=== PATIENT | female | born 1945 | race Caucasian/White ===

== ENCOUNTER 2017-04-07 20:45 | Inpatient (IN) | payer OTHER, BC ==
[2017-04-07] MEDS ORDERED: NS 1,000 ML IV ONE (20:54)
[2017-04-07 20:58] LABS: BASE EXCESS -12.4 mEq/L (-2.5-2.5); BICARBONATE 23 mEq/L (22-26); MEASURED OXYGEN SATURATION 97 % (92-95); PO2 161 mmHg (65-75); TCO2 26 mEq/L (23-27)
[2017-04-07] MEDS ORDERED: IPRATROPIUM/ALBUTEROL 3 ML DEYVIAL IH ONE (21:00)
--- NOTE | 2017-04-07 21:02 | CPEKG ---
Heart Rate: 128 RR Interval: 469 P-R Interval: 144 QRSD Interval: 88 QT Interval: 304 QTC Interval: 444 P [place]: 77 QRS [place]: 75 T Wave [place]: 63 EKG Severity - BORDERLINE ECG - EKG Impression: SINUS TACHYCARDIA EKG Impression: VENTRICULAR PREMATURE COMPLEX EKG Impression: MINIMAL ST DEPRESSION, ANTEROLATERAL LEADS Electronically Signed By: Levy Burnett 07-Apr-2017 21:47:06
[2017-04-07 21:03] LABS: % IMMATURE GRANULYOCYTES 0.9 % (0.0-1.1); ABSOLUTE IMMATURE GRANULOCYTES 0.08 10^3/uL (0.00-0.10); ADD DIFF? NO; ADD MORPH? NO; ADD SCAN? NO; ATYPICAL LYMPHOCYTE FLAG 0 (0-99); FRAGMENT RBC FLAG 0 (0-99); HEMATOCRIT 49.3 % (38.0-47.0); HEMOGLOBIN 15.8 g/dL (12.6-16.3); LEFT SHIFT FLG 0 (0-99); LIPEMIA HEMOLYSIS FLAG 80 (0-99); MEAN CELL HEMOGLOBIN 33.5 pg (27.9-34.1); MEAN CELL VOLUME 104.4 fL (81.5-99.8); MEAN PLATELET VOLUME 10.2 fL (8.7-11.7); PLATELET CLUMPS FLAG 0 (0-99); PLATELET COUNT 207 10^3/uL (150-400); RED BLOOD CELL COUNT 4.72 10^6/uL (4.18-5.33)
[2017-04-07 21:10] LABS: PCO2 101 mmHg (34-38)
[2017-04-07 21:16] LABS: ANION GAP 17 mEq/L (8-16); CARBON DIOXIDE 24 mEq/l (22-31); CHLORIDE 98 mEq/L (97-110); CREATININE 0.7 mg/dL (0.6-1.0); ETHANOL SERUM 16 mg/dL (0-10); GLOMERULAR FILTRATION RATE > 60; GLUCOSE 237 mg/dL (70-100); POTASSIUM 4.4 mEq/L (3.5-5.2); SODIUM 139 mEq/L (134-144)
--- NOTE | 2017-04-07 21:18 | EDPHY ---
H & P Stated Complaint: Resp Distress Time Seen by Provider: 04/07/17 21:15 HPI/ROS: CHIEF COMPLAINT: Respiratory distress HISTORY OF PRESENT ILLNESS: The patient presents to the ED after a respiratory arrest. The patient is visiting from [place]. She was out the with her family when she developed acute dyspnea. The patient does have a history of COPD and asthma. She is also a smoker. The patient reportedly collapsed and had bystander CPR. According to paramedics the patient was noted to be in a sinus tachycardia with pulses upon their arrival. The patient reportedly had initial O2 sats in the 50% range. She was given an basic airway and bag-valve mouth. The patient is unable to provide additional history upon arrival as she is obtunded. REVIEW OF SYSTEMS: A comprehensive 10 point review of systems is otherwise negative aside from elements mentioned in the history of present illness. Source: Family, EMS - Personal History Current Tetanus/Diphtheria Vaccine: Unsure Current Tetanus Diphtheria and Acellular Pertussis (TDAP): Unsure - Medical/Surgical History Hx Asthma: Yes Hx Chronic Respiratory Disease: Yes Hx Diabetes: No Hx Cardiac Disease: No Hx Renal Disease: No Hx Cirrhosis: No Hx Alcoholism: No Hx HIV/AIDS: No Hx Splenectomy or Spleen Trauma: No Other PMH: copd, asthma - Social History Smoking Status: Heavy smoker Alcohol Use: None Drug Use: None - Physical Exam Exam: General Appearance: Confused, thin cachectic female Eyes: Pupils equal and round no pallor or injection ENT, Mouth: Dry mucous membranes Respiratory: Spontaneous breathing Cardiovascular: Regular rate and rhythm Gastrointestinal: Abdomen is soft and nontender, no masses, bowel sounds normal Neurological: Withdrawals to pain all 4 extremities Skin: Poor turgor Musculoskeletal: Neck is supple nontender Extremities: symmetrical, full range of motion Constitutional: Initial Vital Signs Temperature (C) 36.0 C 04/07/17 20:50 Heart Rate 124 H 04/07/17 20:50 Respiratory Rate 40 H 04/07/17 20:50 Blood Pressure 164/106 H 04/07/17 20:50 O2 Sat (%) 96 04/07/17 20:50 O2 Delivery Mode Bi-Pap Allergies/Adverse Reactions: azithromycin Allergy (Verified 04/07/17 20:59) Home Medications: Medication Instructions Recorded Aspirin 81mg (*) 04/07/17 Medical Decision Making - Diagnostics EKG Interpretation: EKG: Complete interpretation has been separately recorded in the [facility] archive. Summary impression: Sinus tachycardia, multiple PVCs Imaging Results: Imaging Impressions Chest X-Ray 04/07/17 20:55 Impression: No active cardiopulmonary disease seen. Head CT 04/07/17 20:55 Impression: 1. No significant intracranial abnormality seen. Findings discussed with Levy Burnett at 21:19 hour, 04/07/2017. ED Course/Re-evaluation: The patient presents the emergency department after a witnessed respiratory arrest. She does have a history of COPD. She arrives of altered mental status and poor air movement. The patient was placed on BiPAP upon arrival. Initial blood gas demonstrates a severe respiratory acidosis with CO2 of 100. The patient was taken for a stat CT scan of the head which demonstrates no evidence of an obvious intracranial mass or midline shift. The patient returned from her CT scan. A stat chest x-ray was performed which demonstrates no evidence of focal infiltrate. She does have emphysematous changes noted consistent with her COPD. The patient was re-evaluated by myself at the bedside at 9:24 p.m.. Her mentation is improving on BiPAP. Family members have arrived to provide collateral information. They report the [place] She has been here for the past day. She has COPD and continues to smoke. She has had no antecedent illness. They believe the patient only uses an inhaler. The patient will require admission to the hospital for close observation of her severe respiratory acidosis and respiratory arrest. Consultation was made with Dr. Diez from the hospitalist service at 9:30 p.m.. He will admit the patient to the intensive care unit this evening. Differential Diagnosis: Differential diagnosis considered includes cardiac arrest, respiratory arrest, pneumonia, intracranial hemorrhage, metabolic abnormality Critical Care Time: Critical care time exclusive of procedures and exclusive of the PA's time was 45 minutes, performed by myself, Levy Burnett MD. Patient presents to the ED with acute respiratory arrest. She was noted to have a critical respiratory acidosis. The patient was placed on BiPAP. She required close bedside observation and will need to be admitted to the ICU for further stabilization. - Data Points Laboratory Results: Laboratory Results 04/07/17 20:54 04/07/17 20:54 04/07/17 04/07/17 04/07/17 20:54 20:54 20:54 WBC 9.36 10^3/uL 10^3/uL (3.80-9.50) RBC 4.72 10^6/uL 10^6/uL (4.18-5.33) Hgb 15.8 g/dL g/dL (12.6-16.3) Hct 49.3 % H % (38.0-47.0) MCV 104.4 fL H fL (81.5-99.8) MCH 33.5 pg pg (27.9-34.1) MCHC 32.0 g/dL L g/dL (32.4-36.7) RDW 13.0 % % (11.5-15.2) Plt Count 207 10^3/uL 10^3/uL (150-400) MPV 10.2 fL fL (8.7-11.7) Neut % (Auto) 27.4 % L % (39.3-74.2) Lymph % (Auto) 60.4 % H % (15.0-45.0) [place] % (Auto) 8.7 % % (4.5-13.0) Eos % (Auto) 2.2 % % (0.6-7.6) Baso % (Auto) 0.4 % % (0.3-1.7) Nucleat RBC Rel Count 0.0 % % (0.0-0.2) Absolute Neuts (auto) 2.57 10^3/uL 10^3/uL (1.70-6.50) Absolute Lymphs (auto) 5.65 10^3/uL H 10^3/uL (1.00-3.00) Absolute Monos (auto) 0.81 10^3/uL H 10^3/uL (0.30-0.80) Absolute Eos (auto) 0.21 10^3/uL 10^3/uL (0.03-0.40) Absolute Basos (auto) 0.04 10^3/uL 10^3/uL (0.02-0.10) Absolute Nucleated RBC 0.00 10^3/uL 10^3/uL (0-0.01) Immature Gran % 0.9 % % (0.0-1.1) Immature Gran # 0.08 10^3/uL 10^3/uL (0.00-0.10) Puncture Site ARTERIAL LINE Patient Temperature 37.0 DEGREES DEGREES pCO2 101 mmHg H* mmHg (34-38) pO2 161 mmHg H mmHg (65-75) Total CO2 26 mEq/L mEq/L (23-27) ABG pH 6.99 L* (7.35-7.45) ABG HCO3 23 mEq/L mEq/L (22-26) ABG O2 Saturation 97 % H % (92-95) ABG Base Excess -12.4 mEq/L L mEq/L (-2.5-2.5) ABG Lactic Acid 5.7 mmol/L H mmol/L (0.5-1.6) Sodium 139 mEq/L mEq/L (134-144) Potassium 4.4 mEq/L mEq/L (3.5-5.2) Chloride 98 mEq/L mEq/L (97-110) Carbon Dioxide 24 mEq/l mEq/l (22-31) Anion Gap 17 mEq/L H mEq/L (8-16) BUN 18 mg/dL mg/dL (7-23) Creatinine 0.7 mg/dL mg/dL (0.6-1.0) Estimated GFR > 60 Glucose 237 mg/dL H mg/dL (70-100) Calcium 10.0 mg/dL mg/dL (8.5-10.4) Troponin I < 0.012 ng/mL ng/mL (0-0.034) Ethyl Alcohol 16 mg/dL H mg/dL (0-10) Medications Given: Discontinued Medications Albuterol/Ipratropium (Duoneb) 9 ml IH EDNOW ONE Stop: 04/07/17 21:01 Last Admin: 04/07/17 21:00 Dose: 9 ml Sodium Chloride (Ns) 1,000 mls @ 0 mls/hr IV ONCE ONE; Wide Open PRN Reason: Protocol Stop: 04/07/17 20:55 Last Admin: 04/07/17 21:03 Dose: 1,000 mls Departure - Departure Disposition: [facility] Acute Clinical Impression: Respiratory acidosis, Respiratory arrest Condition: Critical
[2017-04-07 21:29] LABS: TROPONIN I < 0.012 ng/mL (0-0.034)
[2017-04-07] MEDS ORDERED: ALBUTEROL 3 ML DEYVIAL IH PRN (22:40)
[2017-04-07] MEDS ORDERED: ACETAMINOPHEN 325 MG TAB PO PRN (22:47)
[2017-04-07] MEDS ORDERED: LORazepam 2 MG/ML INJ IVP PRN (22:47)
[2017-04-07] MEDS ORDERED: ONDANSETRON 4 MG/2 ML VIAL IVP PRN (22:47)
[2017-04-07] MEDS ORDERED: NS 1,000 ML IV SCH (23:00)
[2017-04-07 23:06] LABS: BASE EXCESS 0.8 mEq/L (-2.5-2.5); BICARBONATE 26 mEq/L (22-26); MEASURED OXYGEN SATURATION 99 % (92-95); PCO2 43 mmHg (34-38); PO2 134 mmHg (65-75); TCO2 27 mEq/L (23-27)
[2017-04-07 23:07] LABS: BIPAP YES; EXP PRESSURE 12; INSP PRESSURE 5; O2 CONCENTRATIION 40 % (0-100); P/F RATIO 335 RATIO
[2017-04-07] MEDS ORDERED: chlordiazePOXIDE 25 MG CAP PO PRN (23:12)
[2017-04-07] MEDS ORDERED: methylPREDNISolone SOD SUCC 125 MG/2 ML VIAL IVP ONE (23:13)
[2017-04-07] MEDS: IPRATROPIUM/ALBUTEROL 3 ML DEYVIAL IH SCH (23:22)
[2017-04-07] MEDS: THIAMINE HCL 500 MG in NS 100 ML IV SCH (23:36)
--- NOTE | 2017-04-08 00:35 | GHP ---
[f rep st] HISTORY AND PHYSICAL DATE OF ADMISSION: 04/07/2017 CHIEF COMPLAINT: Respiratory arrest. HISTORY OF PRESENT ILLNESS: The patient is a 71-year-old female visiting from [place] arriving yes terday. She and her family were out for dinner this evening when she had acute onset of shortness o f breath. This occurred shortly after another patron of the restaurant walked by wearing some stron g perfume that was overwhelming to her. She went out to the sidewalk and tried to get some fresh ai r and use her inhaler. While outside she turned blue, pale, and collapsed with a complete respirato ry arrest. A physician and nurse happened to be dining there and performed bystander CPR. They did not do rescue breathing, but EMS arrived very rapidly and secured an airway. By the time she was i n the ambulance, she was giving 2 thumbs up and mental status was improving. Her oxygen saturation on arrival was 50% on room air. Initially obtunded, but mental status improved on BiPAP. She has h ad some increasing shortness of breath for the last 1 day. She has been diagnosed with COPD and ast hma and is a heavy smoker, but does not wear home oxygen. Her family thinks she has been struggling with her breathing, however, for some time. PAST MEDICAL HISTORY: COPD and asthma. PAST SURGICAL HISTORY: Cataract. MEDICATIONS: Please see computer record for full detailed list. ALLERGIES: Azithromycin. SOCIAL HISTORY: She smokes 1-2 packs per day, continuous chain smoking since being a teenager. She drinks daily vodka, which according to family is "a lot." She lives alone in [place]. Her husban d 1 year ago of complications of COPD. She is staying locally with her son and [id number] . REVIEW OF SYSTEMS: Complete review of systems obtained. Review of systems is negative on CONSTITUT IONAL, HEENT, GI, PULMONARY, CARDIOVASCULAR, , HEMATOLOGY, SKIN, MUSCULOSKELETAL, ENDOCRINE, PSYCH . as in HPI. FAMILY HISTORY: Reviewed, noncontributory complaints. PHYSICAL EXAMINATION: GENERAL: Well-developed, well-nourished female, in no acute distress. VITAL SIGNS: Temperature 36.0, pulse 107, respiratory rate initially 40, now down to 22, blood pressure 108/76, saturating 98% on BiPAP. EYES: Normal conjunctivae. Pupils equal, round, react to light. ENT: Normal ears, nose. Hearing intact. Normal teeth. Oropharynx moist. NECK: Trachea midline . No thyromegaly. CHEST: Increased respiratory effort. LUNGS: Mostly clear. Decreased breath s ounds. Minimal wheeze. CARDIOVASCULAR: Regular rhythm. No murmur. No lower extremity edema. AB DOMEN: Soft, nontender, no hepatosplenomegaly. SKIN: Warm, dry, intact without rash. MUSCULOSKEL ETAL: No cyanosis or clubbing. Strength 5/5 upper and lower extremities. NEURO: Cranial nerves i ntact. Normal sensation to light touch. PSYCH: Alert and oriented x3. Normal mood and affect. N ormal judgment. Normal memory. LABORATORY DATA: White count 9.36, hematocrit 49.3, platelets 207. Sodium 139, potassium 4.4, chlo ride 98, bicarb 24, BUN 18, creatinine 0.7, glucose 237. Troponins negative. Lactate is 5.7. ABG shows a pH of 6.99, pCO2 of 101, PO2 of 161, bicarb of 23. Head CT is negative. Chest x-ray is neg ative. EKG viewed by me. My personal interpretation is sinus tachycardia, no ischemic ST changes. ASSESSMENT/PLAN: 1. Acute hypercarbic respiratory arrest. Clearly, her initial ABG was very critical. She is now c linically improving on BiPAP. Will recheck a followup ABG. Suspect combination of arriving at [facility], chronic obstructive pulmonary disease exacerbation, and perhaps external stimulus from the per fume and odors in the restaurant led to this sudden acute decline. 2. Chronic obstructive pulmonary disease and asthma exacerbation. Will continue Solu-Medrol and ne bulizers. I do not see anything to suggest infection. I will check a procalcitonin. 3. Lactic acidosis. This is due to her hypoxemic respiratory arrest. Will follow for improvement. 4. Metabolic encephalopathy. This is also improved on BiPAP and is due to her hypercarbia. 5. Tobacco dependence. Will place on a nicotine patch. 6. Alcohol use. Per family this is heavy, although no definite quantity known. Will give her IV t hiamine and place her on a CIWA protocol. CODE STATUS: Full. ADMISSION STATUS: 1. Will admit to inpatient, as I anticipate greater than 2 midnights given critical nature of prese ntation. 2. Critical care time spent 45 minutes. 3. DVT prophylaxis. She is high risk. Will place her on subcu Lovenox. /[id number]/MODL
[2017-04-08 00:55] LABS: TROPONIN I 0.353 ng/mL (0-0.034)
[2017-04-08] MEDS: IPRATROPIUM/ALBUTEROL 3 ML DEYVIAL IH SCH ×4 (05:41→21:03)
[2017-04-08 05:49] LABS: % IMMATURE GRANULYOCYTES 0.7 % (0.0-1.1); ABSOLUTE IMMATURE GRANULOCYTES 0.02 10^3/uL (0.00-0.10); ADD DIFF? NO; ADD MORPH? NO; ADD SCAN? NO; ALANINE AMINOTRANSFERASE 46 IU/L (9-52); ALBUMIN 3.7 g/dL (3.5-5.0); ALKALINE PHOSPHATASE 35 IU/L (38-126); ANION GAP 8 mEq/L (8-16); ASPARTATE AMINOTRANSFERASE 45 IU/L (14-46); ATYPICAL LYMPHOCYTE FLAG 0 (0-99); BILIRUBIN-CONJUGATED 0.4 mg/dL (0.0-0.5); BILIRUBIN-UNCONJUGATED 0.6 mg/dL (0.0-1.1); CALCIUM 8.7 mg/dL (8.5-10.4); CARBON DIOXIDE 24 mEq/l (22-31); CHLORIDE 109 mEq/L (97-110); CREATININE 0.6 mg/dL (0.6-1.0); FRAGMENT RBC FLAG 0 (0-99); GLOMERULAR FILTRATION RATE > 60; GLUCOSE 126 mg/dL (70-100); HEMATOCRIT 35.6 % (38.0-47.0); HEMOGLOBIN 11.8 g/dL (12.6-16.3); LEFT SHIFT FLG 20 (0-99); LIPEMIA HEMOLYSIS FLAG 80 (0-99); MAGNESIUM 1.9 mg/dL (1.6-2.3); MEAN CELL HEMOGLOBIN 33.4 pg (27.9-34.1); MEAN CELL HEMOGLOBIN CONCENTR. 33.1 g/dL (32.4-36.7); MEAN CELL VOLUME 100.8 fL (81.5-99.8); MEAN PLATELET VOLUME 10.2 fL (8.7-11.7); PLATELET CLUMPS FLAG 0 (0-99); PLATELET COUNT 146 10^3/uL (150-400); POTASSIUM 3.9 mEq/L (3.5-5.2); RED BLOOD CELL COUNT 3.53 10^6/uL (4.18-5.33); SODIUM 141 mEq/L (134-144); TOTAL PROTEIN 5.9 g/dL (6.3-8.2)
[2017-04-08 05:54] LABS: BASE EXCESS -1.1 mEq/L (-2.5-2.5); BICARBONATE 23 mEq/L (22-26); MEASURED OXYGEN SATURATION 97 % (92-95); PCO2 38 mmHg (34-38); PO2 94 mmHg (65-75); TCO2 24 mEq/L (23-27)
[2017-04-08 06:00] LABS: TROPONIN I 0.575 ng/mL (0-0.034)
[2017-04-08 06:18] LABS: PROCALCITONIN 0.06 ng/mL (0.02-0.10)
[2017-04-08] MEDS: NICOTINE 21 MG/24 HR PATCH TD SCH (08:34)
[2017-04-08] MEDS: ENOXAPARIN 40 MG/0.4 ML SYR SC SCH (08:35)
[2017-04-08] MEDS: ASPIRIN EC 81 MG TAB PO SCH (08:37)
[2017-04-08] MEDS: THIAMINE HCL 500 MG in NS 100 ML IV SCH (08:37)
[2017-04-08] MEDS ORDERED: PNEUMOC 13-VAL CONJ-DIP CRM/PF 0.5 ML SYR IM ONE (09:00)
--- NOTE | 2017-04-08 10:34 | HOSPPROG ---
Hospitalist Progress Note Assessment/Plan: Assessment: 71 yo F p/w acute encephalopathy in setting of acute hypercapnic and hypoxic respiratory failure 2/2 acute COPD exacerbation Plan: # Encephalopathy. Acute, evidenced by global brain dysfunction characterized as unresponsiveness, which is an acute change from her baseline, occurring suddenly , 2/2 metabolic effects of hypercapnea and lactic acidosis - improving w/ tx of below # Hypercapnic and hypoxic respiratory failure. Acute, evidenced by pCO2 101, SpO2 50% on room air on presentation, pH 6.99, labored breathing and shortness of breath, 2/2 COPD exacerbation, requiring BiPAP - no evidence of focal infiltrate on chest x-ray, personally interpreted - improving s/p BiPAP - weaned to NC o2 - may require ongoing home o2 at discharge - cont resp tx - discussed with Dr. Dylon Perdue, we agreed that patient is stable for transfer out of the intensive care unit # COPD exacerbation. Acute, evidenced by poor exp air movement, long smoking hx , sudden onset shortness of breath - exp air movement remains impaired, cont on scheduled nebs - adjust to PO steroids today, pred 40 daily - initiate Abx # Metabolic acidosis. Acute, 2/2 lactic acid and hypovolemia # Atelectasis. Acute, IS Diet. Regular PPx. High risk, lovenox 40 Code. Full Dispo. ADD uncertain, pending stabilization of COPD exacerbation, air movement remains poor Patient is high medical complexity, high risk of worsening morbidity and/or mortality secondary to the issues as outlined above. Subjective: patient reports that she still feels somewhat short of breath Objective: Vital Signs Temp Pulse Resp BP Pulse Ox 37 C 87 24 H 111/58 L 92 04/08/17 08:00 04/08/17 08:00 04/08/17 08:00 04/08/17 08:00 04/08/17 08:00 Laboratory Results 04/08/17 05:25 04/08/17 05:25 04/07/17 04/08/17 04/09/17 05:59 05:59 05:59 Intake Total 1829 Balance 1829 - Physical Exam Constitutional: no apparent distress, appears nourished, not in pain, No uncomfortable Ears, Nose, Mouth, Throat: moist mucous membranes, hearing normal, ears appear normal, no oral mucosal ulcers Cardiovascular: regular rate and rhythym, no murmur, rub, or gallop, No edema Respiratory: reduced air movement ( bilaterally on expiration), expiratory wheeze, No inspiratory crackles, No bronchial breath sounds Gastrointestinal: normoactive bowel sounds, soft, non-tender abdomen, no palpable masses Neurologic: AAOx3, sensation intact bilaterally, No weakness ( motor strength 5/ 5 bilateral upper and lower extremities) Psychiatric: interacting appropriately, not anxious, not encephalopathic, thought process linear ICD10 Worksheet Patient Problems: Problems Problem Status Onset Respiratory acidosis Acute Respiratory arrest Acute
[2017-04-08] MEDS: AMOXICILLIN/CLAVULANATE POT 875/125 MG TAB PO SCH ×2 (11:40→21:39)
[2017-04-08] MEDS: predniSONE 20 MG TAB PO SCH (11:40)
[2017-04-09 05:51] LABS: ANION GAP 6 mEq/L (8-16); CARBON DIOXIDE 27 mEq/l (22-31); CHLORIDE 106 mEq/L (97-110); CREATININE 0.7 mg/dL (0.6-1.0); GLOMERULAR FILTRATION RATE > 60; GLUCOSE 97 mg/dL (70-100); MAGNESIUM 2.1 mg/dL (1.6-2.3); POTASSIUM 4.1 mEq/L (3.5-5.2); SODIUM 139 mEq/L (134-144)
[2017-04-09] MEDS: IPRATROPIUM/ALBUTEROL 3 ML DEYVIAL IH SCH ×2 (06:09→12:05)
[2017-04-09 07:27] VITALS: BP 114/68; TEMP 98
[2017-04-09] MEDS ORDERED: IOPAMIDOL (ISOVUE 370) 100 ML BTL IV ONE (09:03)
[2017-04-09 09:23] LABS: % IMMATURE GRANULYOCYTES 0.5 % (0.0-1.1); ABSOLUTE IMMATURE GRANULOCYTES 0.03 10^3/uL (0.00-0.10); ADD DIFF? NO; ADD MORPH? NO; ADD SCAN? NO; ATYPICAL LYMPHOCYTE FLAG 0 (0-99); FRAGMENT RBC FLAG 0 (0-99); HEMATOCRIT 41.9 % (38.0-47.0); HEMOGLOBIN 13.9 g/dL (12.6-16.3); LEFT SHIFT FLG 0 (0-99); LIPEMIA HEMOLYSIS FLAG 80 (0-99); MEAN CELL HEMOGLOBIN 33.3 pg (27.9-34.1); MEAN CELL HEMOGLOBIN CONCENTR. 33.2 g/dL (32.4-36.7); MEAN CELL VOLUME 100.2 fL (81.5-99.8); MEAN PLATELET VOLUME 10.1 fL (8.7-11.7); PLATELET CLUMPS FLAG 10 (0-99); PLATELET COUNT 168 10^3/uL (150-400); RED BLOOD CELL COUNT 4.18 10^6/uL (4.18-5.33); RED CELL DISTRIBUTION WIDTH 13.2 % (11.5-15.2)
[2017-04-09] MEDS: ENOXAPARIN 40 MG/0.4 ML SYR SC SCH (09:46)
[2017-04-09] MEDS: ASPIRIN EC 81 MG TAB PO SCH (09:47)
[2017-04-09] MEDS: predniSONE 20 MG TAB PO SCH (09:47)
[2017-04-09] MEDS: NICOTINE 21 MG/24 HR PATCH TD SCH (09:47)
[2017-04-09] MEDS: AMOXICILLIN/CLAVULANATE POT 875/125 MG TAB PO SCH (09:47)
[2017-04-09 12:10] VITALS: PULSE 79; RESP 16; O2SAT 93
[2017-04-09] MEDS ORDERED: RIVAROXABAN 15 MG TAB PO ONE ×2 (13:02→16:00)
[2017-04-09 13:30] LABS: PCO2 VENOUS 43 mmHg (40-44); PH VENOUS BLOOD 7.39 (7.31-7.42); PO2 VENOUS 60 mmHg (35-40); TCO2 VENOUS 27 mEq/L (23-27); VEN MEASURED OXYGEN SATURATION 90 % (65-75)
--- NOTE | 2017-04-09 15:52 | ECHO ---
[id number] + + [id number] : : [place] [id number] : : [phone] + + Adult Echocardiographic Report + ---+ :Name: ALOK HOUSTON MStudy Date: 04/09/2017 12:47 PM BP: 114/68 mm Hg : : Hospital Admission Number: [id number] : :: 1945 Gender: Female Height: 63 in : :Age: 71 yrs Race: WH Weight: 110 l b : :Reason For Study: eval for wall motion abnl : : BSA: 1.5 mete rs2: :History: copd; respiratory arrest : + ---+ MMode/2D Measurements \T\ Calculations IVSd: 0.82 cm RVDd: 3.7 cm FS: 35.3 % Ao root diam: LVPWd: 0.90 cm LVIDd: 4.2 cm EDV(Teich): 3.1 cm LVIDs: 2.8 cm 80.8 ml ESV(Teich): 28.3 ml EF(Teich): 65.0 % LVLd ap4: 8.4 cm SV(MOD-sp4): EDV(MOD-sp4): 60.0 ml 82.0 ml LVLs ap4: 7.1 cm ESV(MOD-sp4): 22.0 ml EF(MOD-sp4): 73.2 % Normal Measurement Values: + + :LVIDd (3.5-5.7cm) IVSd (0.6-1.1cm) LVPWd (0.6-1.1cm) Aortic Root (2.0-3.7cm)Left Atrium (1.5-4.0cm): :LV Vol(d) (76-115ml) LV Vol(s) (29-48ml) Ejec Fraction (50-65%)PV Daniel (0.6- 1.2m/s) TV Daniel (0.4-1.0m/s) : :MV E Daniel (0.8-1.0m/s)MV A Daniel (0.3-1.0m/s)LVOT Daniel (0.7-1.2m/s) Asc Ao Daniel ( 0.9-1.8m/s) : + + Doppler Measurements \T\ Calculations MV E max daniel: Ao V2 max: LV V1 max: PA V2 max: 76.5 cm/sec 108.6 cm/sec 88.4 cm/sec 88.0 cm/sec MV A max daniel: Ao max P.7 mmHg LV V1 max PG: PA max P.7 cm/sec 3.1 mmHg 3.1 mmHg MV E/A: 0.78 MV dec time: 0.22 sec Left Ventricle The left ventricle is normal in size and function. There is normal left ventricular wall thickness. Ejection Fraction = 65-70%. No regional wall motion abnormalities noted. Right Ventricle The right ventricle is normal in size and function. There is mild right ventricular hypertrophy. Atria The left atrial size is normal. Right atrial size is normal. A prominent eustachian valve is noted. Mitral Valve The mitral valve is normal in structure and function. There is no mitral valve stenosis. There is trace to mild mitral regurgitation. Tricuspid Valve The tricuspid valve is normal in structure and function. There is no tricuspid stenosis. There is trace tricuspid regurgitation. Inadequate TR jet; unable to estimate right heart pressures. Aortic Valve The aortic valve is trileaflet. There is no aortic stenosis. There is no aortic insufficiency. Pulmonic Valve The pulmonic valve is not well visualized. There is no pulmonic valvular regurgitation. Great Vessels The aortic root is normal size. Pericardium/Pleural trivial pericardial effusion. Conclusion A two-dimensional transthoracic echocardiogram with M-mode and Doppler was performed. The study was technically difficult. Final Reading Physician: Jordin Garcia signed on 04/09/2017 03:50 PM Ordering Physician: Nigel Crawford Performed By: Kaylee Pate
--- NOTE | 2017-04-09 16:06 | PDDCSUM ---
Discharge Summary Discharge Summary: DISCHARGE SUMMARY FOLLOW-UP ITEMS: Cardiac Stress test, outpatient pulmonary function test, repeat CT of chest to reassess pulmonary nodules in 3-6 months DATE OF ADMISSION: 04/07/2017 DATE OF DISCHARGE: 04/09/2017 DISCHARGE DIAGNOSES: 1. Acute encephalopathy 2. Acute hypercapnic and hypoxic respiratory failure 3. Acute pulmonary embolism 4. Acute COPD exacerbation 5. Acute metabolic acidosis 6. Acute atelectasis 7. Abnormal troponin level 8. Abnormal lactic acid level 9. Pulmonary nodules CONSULTATIONS: None PROCEDURES / IMAGING: Echocardiogram demonstrating normal ejection fraction, no focal wall motion abnormalities, mild right ventricular hypertrophy, CT angiogram of the chest demonstrating right middle lobe segmental pulmonary embolism CHIEF COMPLAINT: Acute unresponsiveness SUBJECTIVE: Patient is feeling well at time of discharge, she has mild right-sided chest discomfort PHYSICAL EXAM ON DISCHARGE: Systolic blood pressure 110, heart rate 60s, satting 94% on room air expiratory air movement is somewhat diminished without any expiratory wheezes or bronchial breath sounds, heart rhythm is regular, no lower extremity edema, mentating well LABS ON DISCHARGE: Venous lactic acid 3.1 venous pH 7.39, venous pCO2 27, troponin 0.54, creatinine 0.7, liver panel unremarkable, procalcitonin 0.06 HOSPITAL COURSE BY PROBLEM: 1. Acute encephalopathy. Evidenced by global brain dysfunction characterized as unresponsiveness which was an acute change from her baseline, occurring suddenly secondary to the metabolic effects of hypercapnia and lactic acidosis. Mental status has returned to baseline. 2. Acute hypercapnic and hypoxic respiratory failure. Evidenced by pCO2 of 101 , SpO2 of 50% on room air, pH of 6.99, labored breathing and shortness of breath , secondary to a COPD exacerbation as well as concomitant right middle lobe pulmonary embolism. Patient required BiPAP therapy and intensive care unit monitoring. She has been weaned to room air status post treating her COPD exacerbation as well as pulmonary embolism. She is not require supplemental oxygen at time of discharge. 3. Acute pulmonary embolism. Segmental, right middle lobe, most likely the precipitating cause of her COPD exacerbation as well as a potential cause of her abnormal troponin level. It is unclear whether her pulmonary embolism was provoked from recent extended travel and she warrants at least 3 months of systemic anticoagulation, possibly 9-12 months depending on D-dimer level at that time. I discussed oral anticoagulation options with the patient and her family, and they have elected to initiate Xarelto at this time. All bleeding risks were discussed. The patient has been provided with Xarelto starter pack and she should follow up with her primary care provider regarding ongoing authorization. 4. Acute COPD exacerbation. Evidenced by poor expiratory air movement long smoking history and sudden onset of shortness of breath. His most likely provoked by a pulmonary embolism. Her condition significantly improved with BiPAP therapy as well as initiation of steroids and duo nebs. She was transitioned to oral steroids and will complete a 5 day burst. She was also transition from scheduled duo nebs to an as-needed albuterol inhaler as well as scheduled Advair and Spiriva. I recommended that she have formal outpatient pulmonary function tests performed through her primary care provider office once she recovers from this acute situation. She was also placed on antibiotic to reduce the duration of her symptoms and she did not have any evidence of overt infection. 5. Acute metabolic acidosis. Secondary to a combination of lactic acid and hypercapnia with a pH of 6.99, resolved with BiPAP therapy and IV fluids. 1 6. Acute atelectasis. She received incentive spirometer, this improved. 6. Pulmonary nodules. Patient pulmonary nodules noted on CT of her chest, given her smoking history and high risk for malignancy we would recommend outpatient 3 month follow-up imaging. 7. Abnormal troponin. Most likely secondary to myocardial strain in the setting of pulmonary embolism and COPD exacerbation, down trended with treatment of above. We recommend outpatient cardiac stress testing once her situation has acutely resolved. Given that she will be on systemic anticoagulation, I recommended discontinuing her aspirin to reduce her bleed risk she does not currently have an absolute indication for aspirin therapy. 8. Abnormal lactic acid. Patient initially had an elevated lactic acid level in the setting of metabolic acidosis. This may have been secondary to hypovolemia and hypoperfusion in the setting of her acute event. After receiving IV fluids, her lactic acid level normalized. She subsequently had a repeat level checked and it was elevated but she did not have any subsequent hypotension or signs of hypovolemia. The significance of her elevated level is unclear and she should have a repeat level followed up by her primary care provider to rule out a type B lactic acid level, which could be more consistent with hematologic malignancy. It should be noted that her pH was normal at time of discharge indicating that her lactic acid level is not resulting in overt acidemia, and is therefore not acutely dangerous at this time. DISCHARGE MEDICATIONS: Please see official discharge medication reconciliation sheet in chart comma Xarelto starter pack, Spiriva daily, Advair twice daily, continue as needed albuterol, prednisone 40 mg x3 days, Augmentin 875 x 3 days. DISCHARGE INSTRUCTIONS: Please follow up with primary care provider upon returning to [place]. TIME SPENT: Greater than 30 minutes were spent on direct patient care, as well as discharge planning and preparation.
[2017-04-10] MEDS ORDERED: THIAMINE HCL 100 MG TAB PO SCH (09:00)
== END 2017-04-09 17:06 | disposition home or self-care (01) | DRG 205 ==
LOC: F2N 21:53 → F3E 04-08 11:59
PROVIDERS: ADMIT Internal Medicine; ATTEND Internal Medicine
DX: R09.2 Respiratory arrest (principal); J96.02 Acute respiratory failure with hypercapnia; J96.01 Acute respiratory failure with hypoxia; I26.99 Other pulmonary embolism without acute cor pulmonale; J44.1 Chronic obstructive pulmonary disease with (acute) exacerbation; G93.40 Encephalopathy, unspecified; E87.2 Acidosis; Z23 Encounter for immunization
CPT/HCPCS: 82947-QW; 97161-GP; G0009; G0480; G8978-GP-CH; G8979-GP-CH; G8980-GP-CH; J1650; J3411; Q9967